=== PATIENT | male | born 1975 | race Caucasian/White ===

== ENCOUNTER 2023-08-24 13:10 | Emergency (ER) | payer OTHER, SELFPAY ==
[2023-08-24 13:17] VITALS: BP 122/75; PULSE 95; RESP 16; TEMP 37.1; O2SAT 100
--- NOTE | 2023-08-24 13:38 | ED_ITS ---
HPI - Eye Problem General Chief complaint: Eye Problems Stated complaint: Pain in L eye Time Seen by Provider: 08/24/23 13:12 History of Present Illness HPI Narrative: Patient is a 47-year-old gentleman who was on a zoom meeting yesterday when he felt a sensation in his left eye. Unable to get the foreign body sensation out of his eye. He has had no changes visual acuity no fevers no chills no night sweats. He has otherwise been in his usual state of health. No other problems have been noted. Patient is left with mild foreign body sensation in the center of his eye. Related Data Home Medications Medication Instructions Recorded Confirmed No Known Home Medications 08/24/23 08/24/23 Allergies Allergy/AdvReac Type Severity Reaction Status Date / Time No Known Drug Allergies Allergy Verified 08/24/23 13:20 Review of Systems Status of ROS: Reports: 10 or more systems reviewed and unremarkable except as noted in History and below PFSH PFS Social History Smoking Status: Never smoker Do you use any of these nicotine containing products: None Second hand tobacco smoke exposure: No How often do you have a drink containing alcohol: never How many standard drinks containing alcohol do you have on a typical day: 1 or 2 How often do you have six or more drinks on one occasion: Less than monthly AUDIT-C Alcohol total score: 1 Non-prescribed substance use: denies use service: No Exam Narrative: Exam Narrative: EXAM GENERAL: Patient appears comfortable and well. EYES: Mild injection of left eye. Careful inspection after anesthesia shows no signs of foreign body no obvious deformities of the globe pupils are equal round reactive. LYMPH: No supraclavicular or cervical lymphadenopathy. SKIN: Visible skin seen during exam normal or with benign process only. EXT: No dependent lower extremity pedal edema. HEART: Regular rate and rhythm with no murmurs, rubs, or gallops. LUNGS: Clear to auscultation bilaterally with no crackles or wheezes. ABD: Soft, non tender, non distended. PSYCH: Good eye contact, speech is not pressured. Const: Vital Signs, click to edit/add: Vital Signs - 24 hr 08/24/23 13:17 Temperature 98.7 F Pulse Rate [Pulse Oximeter] 95 Respiratory Rate 16 Blood Pressure [Le ft Upper Arm] 122/75 Pulse Oximetry 100 Oxygen Delivery Me thod Room Air Course Vital Signs Vital signs: Initial Vital Signs Temperature 98.7 F 08/24/23 13:17 Temperature Source Temporal Artery Scan 08/24/23 13:17 Pulse Rate 95 08/24/23 13:17 Pulse Rhythm Regular 08/24/23 13:17 Pulse Strength 3+ Normal 08/24/23 13:17 Respiratory Rate 16 08/24/23 13:17 Blood Pressure 122/75 08/24/23 13:17 Blood Pressure Mean 90 08/24/23 13:17 Blood Pressure Position Sitting 08/24/23 13:17 Pulse Oximetry 100 08/24/23 13:17 Oxygen Delivery Method Room Air 08/24/23 13:17 Vital Signs Temperature 98.7 F 08/24/23 13:17 Pulse Rate 95 08/24/23 13:17 Respiratory Rate 16 08/24/23 13:17 Blood Pressure 122/75 08/24/23 13:17 Pulse Oximetry 100 08/24/23 13:17 Oxygen Delivery Method Room Air 08/24/23 13:17 Temperature 98.7 F 08/24/23 13:17 Pulse Rate 95 08/24/23 13:17 Respiratory Rate 16 08/24/23 13:17 Blood Pressure 122/75 08/24/23 13:17 Pulse Oximetry 100 08/24/23 13:17 Oxygen Delivery Method Room Air 08/24/23 13:17 MDM - Eye Problem MDM Narrative Medical decision making narrative: Patient presents with what sounds to be a corneal abrasion. A careful exam is I under anesthesia and I did find no evidence of foreign body at this time. The eye was aggressively irrigated and I did sweep both the upper and lower lids with a swab. He is now feeling much better anWill follow-up with Optometry as needed. Differential Diagnosis Differential diagnosis: Likely corneal abrasion, conjunctivitis, acute iritis, hyphema, periorbital cellulitis, subconjunctival hemorrhage, glaucoma, corneal ulcer and ruptured globe Discharge Plan Discharge Clinical Impression: Corneal abrasion Patient Disposition: Home, Self-Care Condition: Stable Instructions: Corneal Abrasion (ED) Additional Instructions: Drops as directed Avoid rubbing your eye Follow-up with optometry of symptoms worsen. Activity Level: No Restrictions Discharge Diet: Regular Prescriptions: No Action No Known Home Medications Follow Up/Referrals: Ailabouni,Jamshid D, MD [Primary Care Provider] - Stand Alone Forms: [facility] Social Info Instructions
== END 2023-08-24 14:01 | disposition home or self-care (01) ==
LOC: ED 13:50
PROVIDERS: Emergency Provider Internal Medicine; PCP Student in an Organized Health Care Education/Training Program
DX: S05.02XA Injury of conjunctiva and corneal abrasion without foreign body, left eye, initial encounter (principal)
CPT/HCPCS: 99283